=== PATIENT | male | born 1940 | race Caucasian/White ===

== ENCOUNTER 2023-03-16 14:15 | Emergency (ER) | payer MEDICARE, BC ==
[2023-03-16] MEDS ORDERED: Ondansetron 4 MG/2 ML SDV IVPUSH ONE (14:29)
[2023-03-16] MEDS ORDERED: Sodium Chloride 0.9% 10 ML Syringe FLUSH PRN (14:32)
[2023-03-16] MEDS: Diltiazem 25 MG/5 ML SDV IVPUSH ONE ×2 (14:33→14:42)
[2023-03-16 14:40] LABS: BASOPHILS ABSOLUTE AUTO 0.01 K/uL (0.00-0.20); BASOPHILS PERCENT AUTO 0.4 % (0.0-2.0); EOSINOPHILS ABSOLUTE AUTO 0.16 K/uL (0.00-0.50); EOSINOPHILS PERCENT AUTO 5.9 % (0.0-5.0); HEMATOCRIT 30.2 % (39.0-49.0); HEMOGLOBIN 9.7 g/dL (13.1-16.8); LYMPHOCYTES ABSOLUTE AUTO 0.44 K/uL (0.50-3.50); LYMPHOCYTES PERCENT AUTO 16.2 % (10.0-50.0); MEAN CORPUSCULAR HEMOGLOBIN 31.6 pg (28.2-33.3); MEAN CORPUSCULAR HGB CONC 32.1 g/dL (31.7-36.0); MEAN CORPUSCULAR VOLUME 98.4 fL (84.0-98.0); MONOCYTES ABSOLUTE AUTO 0.41 K/uL (0.00-1.00); MONOCYTES PERCENT AUTO 15.1 % (2.0-14.0); NEUTROPHILS ABSOLUTE AUTO 1.69 K/uL (1.40-7.00); NEUTROPHILS PERCENT AUTO 62.4 % (45.0-80.0); PLATELET COUNT,PLT 180 K/uL (150-350); RED BLOOD CELL COUNT 3.07 M/uL (4.33-5.41); RED CELL DISTRIBUTION WIDTH 17.6 % (11.2-14.1); WHITE BLOOD CELL COUNT,WBC 2.7 K/uL (4.0-10.2)
[2023-03-16] MEDS ORDERED: Lactated Ringers 1,000 ML IV SCH (14:45)
[2023-03-16] MEDS ORDERED: fentaNYL 50 MCG/ML SDV IVPUSH ONE (14:48)
[2023-03-16] MEDS ORDERED: Metoprolol Tartrate 5 MG/5 ML SDV ONE ×2 (14:50→14:58)
[2023-03-16] MEDS ORDERED: Digoxin 500 MCG/2 ML Amp ONE (15:00)
[2023-03-16 15:20] LABS: PROTHROMBIN TIME 10.4 SEC (9.0-11.1); PTT,PARTIAL THROMBOPLSTIN TIME 24.6 SEC (23.6-29.8)
[2023-03-16 15:20] LABS: ALANINE AMINOTRANSFERASE,ALT 54 U/L (12-78); ALBUMIN 2.7 g/dL (3.4-5.0); ALKALINE PHOSPHATASE 96 IU/L (46-116); ANION GAP 12.8 meq/L (7-15); ASPARTATE AMNIOTRANSFERASE,AST 34 U/L (15-37); BILIRUBIN TOTAL 0.6 mg/dL (0.2-1.0); BLOOD UREA NITROGEN,BUN 13 mg/dL (7-18); CALCIUM 7.3 mg/dL (8.5-10.1); CARBON DIOXIDE,CO2 24.2 mmol/L (21.0-32.0); CHLORIDE,CL 103 mmol/L (98-107); GLUCOSE RANDOM 140 mg/dL (70-99); MAGNESIUM 1.2 mg/dL (1.8-2.4); POTASSIUM,K 4.1 mmol/L (3.5-5.1); PROTEIN TOTAL,TP 5.8 g/dL (6.4-8.2); SODIUM,NA 140 mmol/L (136-145); TSH ULTRASENSITIVE 0.778 mIU/mL (0.358-3.740)
[2023-03-16] MEDS ORDERED: Metoclopramide 10 MG/2 ML SDV ONE (15:21)
[2023-03-16 15:22] LABS: ESTIMATED GFR 74 mL/min (>=60)
[2023-03-16 15:27] LABS: C-REACTIVE PROTEIN 5.55 mg/dL (0.05-0.30)
[2023-03-16] MEDS ORDERED: Magnesium Sulfate/Water 4 GM in Premix Bag 1 BAG IV ONE (16:07)
[2023-03-16] MEDS ORDERED: Enoxaparin 80 MG/0.8 ML Syringe ONE (16:21)
== END 2023-03-16 18:05 ==
LOC: LL.ED 14:15
DX: I48.91 Unspecified atrial fibrillation (principal); E83.42 Hypomagnesemia
CPT/HCPCS: 36415; 70450; 71045; 80053; 83735; 84443; 84484; 85025; 85610; 85730; 86140; 93005; 96361; 96365; 96366; 96368; 96375; 99285; J0282; J1160; J1650; J2405; J2765; J3010; J3475; J3490; J7120

== ENCOUNTER 2023-04-18 14:44 | Emergency (ER) | payer MEDICARE, BC, OTHER ==
[2023-04-18 15:28] LABS: HEMATOCRIT 31.7 % (39.0-49.0); HEMOGLOBIN 10.3 g/dL (13.1-16.8); LYMPHOCYTES ABSOLUTE AUTO 0.19 K/uL (0.50-3.50); LYMPHOCYTES PERCENT AUTO 4.6 % (10.0-50.0); MEAN CORPUSCULAR HEMOGLOBIN 31.5 pg (28.2-33.3); MEAN CORPUSCULAR HGB CONC 32.5 g/dL (31.7-36.0); MEAN CORPUSCULAR VOLUME 96.9 fL (84.0-98.0); MONOCYTES ABSOLUTE AUTO 0.72 K/uL (0.00-1.00); MONOCYTES PERCENT AUTO 17.3 % (2.0-14.0); NEUTROPHILS ABSOLUTE AUTO 3.25 K/uL (1.40-7.00); NEUTROPHILS PERCENT AUTO 78.1 % (45.0-80.0); PLATELET COUNT,PLT 149 K/uL (150-350); RED BLOOD CELL COUNT 3.27 M/uL (4.33-5.41); RED CELL DISTRIBUTION WIDTH 16.4 % (11.2-14.1); WHITE BLOOD CELL COUNT,WBC 4.2 K/uL (4.0-10.2)
[2023-04-18 15:39] LABS: BLOOD UREA NITROGEN,BUN 14 mg/dL (7-18); CALCIUM 7.8 mg/dL (8.5-10.1); CHLORIDE,CL 106 mmol/L (98-107); CREATININE 0.92 mg/dL (0.51-1.17); GLUCOSE RANDOM 147 mg/dL (70-99); POTASSIUM,K 4.1 mmol/L (3.5-5.1); SODIUM,NA 143 mmol/L (136-145)
[2023-04-18 15:41] LABS: ESTIMATED GFR 82 mL/min (>=60)
== END 2023-04-18 17:00 | disposition home or self-care (01) ==
LOC: SUPCPDRO 14:44 → LL.ED 14:44
DX: S61.215A Laceration without foreign body of left ring finger without damage to nail, initial encounter (principal); S00.83XA Contusion of other part of head, initial encounter; S50.311A Abrasion of right elbow, initial encounter; S90.412A Abrasion, left great toe, initial encounter; I10 Essential (primary) hypertension; E78.00 Pure hypercholesterolemia, unspecified; I25.10 Atherosclerotic heart disease of native coronary artery without angina pectoris; K21.9 Gastro-esophageal reflux disease without esophagitis; Z86.73 Personal history of transient ischemic attack (TIA), and cerebral infarction without residual deficits; Z79.899 Other long term (current) drug therapy; W18.2XXA Fall in (into) shower or empty bathtub, initial encounter
CPT/HCPCS: 36415; 70450; 72125; 80048; 85025; 99284

== ENCOUNTER 2023-06-21 11:58 | Observation (INO) | payer MEDICARE, BC ==
[2023-06-21 12:28] LABS: BASOPHILS ABSOLUTE AUTO 0.01 K/uL (0.00-0.20); BASOPHILS PERCENT AUTO 0.4 % (0.0-2.0); EOSINOPHILS ABSOLUTE AUTO 0.02 K/uL (0.00-0.50); EOSINOPHILS PERCENT AUTO 0.8 % (0.0-5.0); HEMATOCRIT 31.6 % (39.0-49.0); HEMOGLOBIN 10.3 g/dL (13.1-16.8); LYMPHOCYTES ABSOLUTE AUTO 0.24 K/uL (0.50-3.50); LYMPHOCYTES PERCENT AUTO 10.1 % (10.0-50.0); MEAN CORPUSCULAR HEMOGLOBIN 31.8 pg (28.2-33.3); MEAN CORPUSCULAR HGB CONC 32.6 g/dL (31.7-36.0); MEAN CORPUSCULAR VOLUME 97.5 fL (84.0-98.0); MONOCYTES ABSOLUTE AUTO 0.27 K/uL (0.00-1.00); MONOCYTES PERCENT AUTO 11.4 % (2.0-14.0); NEUTROPHILS ABSOLUTE AUTO 1.83 K/uL (1.40-7.00); NEUTROPHILS PERCENT AUTO 77.3 % (45.0-80.0); PLATELET COUNT,PLT 134 K/uL (150-350); RED BLOOD CELL COUNT 3.24 M/uL (4.33-5.41); RED CELL DISTRIBUTION WIDTH 16.6 % (11.2-14.1); WHITE BLOOD CELL COUNT,WBC 2.4 K/uL (4.0-10.2)
[2023-06-21 12:51] LABS: ALANINE AMINOTRANSFERASE,ALT 41 U/L (12-78); ALBUMIN 2.7 g/dL (3.4-5.0); ALKALINE PHOSPHATASE 82 IU/L (46-116); ANION GAP 7.1 meq/L (7-15); ASPARTATE AMNIOTRANSFERASE,AST 18 U/L (15-37); BILIRUBIN TOTAL 0.3 mg/dL (0.2-1.0); BLOOD UREA NITROGEN,BUN 17 mg/dL (7-18); CALCIUM 7.4 mg/dL (8.5-10.1); CARBON DIOXIDE,CO2 28.9 mmol/L (21.0-32.0); CHLORIDE,CL 105 mmol/L (98-107); CREATININE 0.74 mg/dL (0.51-1.17); ESTIMATED GFR 89 mL/min (>=60); GLUCOSE RANDOM 80 mg/dL (70-99); PRO B-TYPE NATRIUR PEPT,BNPPRO 1970 pg/mL (0-125); PROTEIN TOTAL,TP 5.6 g/dL (6.4-8.2); SODIUM,NA 141 mmol/L (136-145)
[2023-06-21 13:04] LABS: CORONAVIRUS COVID-19 NAA NEGATIVE (NEGATIVE); INFLUENZA A NAA NEGATIVE (NEGATIVE); INFLUENZA B NAA POSITIVE (NEGATIVE); RESPIRATORY SYNCYTIAL VIR NAA NEGATIVE (NEGATIVE)
[2023-06-21] MEDS: Magnesium Sulfate/Water 4 GM in Premix Bag 1 BAG IV ONE (14:46)
[2023-06-21] MEDS ORDERED: LENALIDOMIDE 10 MG PO SCH (15:45)
[2023-06-21] MEDS ORDERED: Non-Formulary Medication 1 Each (Insulin Glargine,Hum.Rec.Anlog [Lantus] 100 UNIT/ML Vial) SQ SCH (15:45)
[2023-06-21] MEDS ORDERED: oxyCODONE 5 MG Tab PO PRN (16:27)
[2023-06-21] MEDS: metFORMIN 500 MG Tab PO SCH (17:54)
[2023-06-21] MEDS: Acyclovir 200 MG Cap PO SCH (17:54)
[2023-06-21] MEDS: Apixaban 2.5 MG Tab PO SCH (17:54)
[2023-06-21] MEDS: guaiFENesin 600 MG Tab.ER PO SCH (17:55)
[2023-06-21] MEDS: Lisinopril 20 MG Tab PO SCH (19:23)
[2023-06-21] MEDS: Benzonatate 100 MG Cap PO PRN (19:23)
[2023-06-21] MEDS: atorvaSTATin 40 MG Tab PO SCH (19:23)
[2023-06-21] MEDS: Albuterol/Ipratropium 3.0-0.5 MG/3 ML Neb Soln NEB SCH (19:25)
[2023-06-21] MEDS: Sodium Chloride 0.9% 10 ML Syringe FLUSH PRN (19:32)
[2023-06-21] MEDS: Acetaminophen 325 MG Tab PO PRN (19:41)
[2023-06-22] MEDS: Fluconazole 200 MG Tab PO SCH (07:38)
[2023-06-22] MEDS: Ondansetron 4 MG Tab.DIS PO PRN (07:38)
[2023-06-22] MEDS: Omeprazole 20 MG Cap.CR PO SCH (07:38)
[2023-06-22] MEDS: Metoprolol Succinate 50 MG Tab.ER PO SCH (07:42)
[2023-06-22] MEDS: VICTOZA 18 MG/3 ML SUBCUT SCH (07:44)
[2023-06-22 08:15] LABS: BASOPHILS ABSOLUTE AUTO 0.02 K/uL (0.00-0.20); BASOPHILS PERCENT AUTO 0.8 % (0.0-2.0); EOSINOPHILS ABSOLUTE AUTO 0.01 K/uL (0.00-0.50); EOSINOPHILS PERCENT AUTO 0.4 % (0.0-5.0); HEMATOCRIT 30.7 % (39.0-49.0); HEMOGLOBIN 10.1 g/dL (13.1-16.8); LYMPHOCYTES ABSOLUTE AUTO 0.28 K/uL (0.50-3.50); LYMPHOCYTES PERCENT AUTO 11.1 % (10.0-50.0); MEAN CORPUSCULAR HEMOGLOBIN 31.7 pg (28.2-33.3); MEAN CORPUSCULAR HGB CONC 32.9 g/dL (31.7-36.0); MEAN CORPUSCULAR VOLUME 96.2 fL (84.0-98.0); MONOCYTES ABSOLUTE AUTO 0.21 K/uL (0.00-1.00); MONOCYTES PERCENT AUTO 8.3 % (2.0-14.0); NEUTROPHILS PERCENT AUTO 79.4 % (45.0-80.0); PLATELET COUNT,PLT 127 K/uL (150-350); RED BLOOD CELL COUNT 3.19 M/uL (4.33-5.41); RED CELL DISTRIBUTION WIDTH 16.6 % (11.2-14.1); WHITE BLOOD CELL COUNT,WBC 2.5 K/uL (4.0-10.2)
[2023-06-22 08:30] LABS: ANION GAP 7.3 meq/L (7-15); CALCIUM 7.4 mg/dL (8.5-10.1); CARBON DIOXIDE,CO2 28.7 mmol/L (21.0-32.0); CREATININE 0.74 mg/dL (0.51-1.17); EST CRCL DRUG DOSING (CG) 75.36 mL/min; MAGNESIUM 1.7 mg/dL (1.8-2.4); POTASSIUM,K 3.8 mmol/L (3.5-5.1)
[2023-06-22] MEDS: Magnesium Sulfate/Water 2 GM in Premix Bag 1 BAG IV ONE (09:11)
[2023-06-22] MEDS ORDERED: Take Home: Albuterol 6.7 GM Inhaler, 1 Inhaler Pack INH ONE (11:20)
[2023-06-22] MEDS: Take Home: Albuterol/Ipratropium 3.0-0.5 MG/3 ML Neb Soln, 4 Neb Pack NEB ONE (12:12)
== END 2023-06-22 12:24 | disposition home or self-care (01) ==
LOC: LL.ED 11:58 → LL.MS 15:13
PROVIDERS: ADMIT Emergency Medicine; ATTEND Emergency Medicine
DX: J10.1 Influenza due to other identified influenza virus with other respiratory manifestations (principal); E83.42 Hypomagnesemia; R06.82 Tachypnea, not elsewhere classified; R06.02 Shortness of breath; I25.10 Atherosclerotic heart disease of native coronary artery without angina pectoris; E78.00 Pure hypercholesterolemia, unspecified; I10 Essential (primary) hypertension; K21.9 Gastro-esophageal reflux disease without esophagitis; E11.9 Type 2 diabetes mellitus without complications; E66.9 Obesity, unspecified; Z68.30 Body mass index [BMI] 30.0-30.9, adult; Z79.899 Other long term (current) drug therapy; Z79.4 Long term (current) use of insulin; Z79.84 Long term (current) use of oral hypoglycemic drugs; Z20.822 Contact with and (suspected) exposure to COVID-19
CPT/HCPCS: 0241U; 36415; 71046; 80048; 80053; 83735; 83880; 85025; 94640; 96365; 96366; 99223; 99238; 99285-25; A9270-GY; G0378; J3475; J3490; J7620-GY

== ENCOUNTER 2023-09-02 16:50 | Inpatient (IN) | payer MEDICARE, BC ==
[2023-09-02 17:40] LABS: BASOPHILS ABSOLUTE AUTO 0.01 K/uL (0.00-0.20); BASOPHILS PERCENT AUTO 0.3 % (0.0-2.0); EOSINOPHILS ABSOLUTE AUTO 0.11 K/uL (0.00-0.50); EOSINOPHILS PERCENT AUTO 3.2 % (0.0-5.0); HEMOGLOBIN 10.9 g/dL (13.1-16.8); LYMPHOCYTES ABSOLUTE AUTO 0.69 K/uL (0.50-3.50); LYMPHOCYTES PERCENT AUTO 19.8 % (10.0-50.0); MEAN CORPUSCULAR HEMOGLOBIN 29.9 pg (28.2-33.3); MEAN CORPUSCULAR HGB CONC 32.1 g/dL (31.7-36.0); MEAN CORPUSCULAR VOLUME 93.4 fL (84.0-98.0); MONOCYTES ABSOLUTE AUTO 0.29 K/uL (0.00-1.00); MONOCYTES PERCENT AUTO 8.3 % (2.0-14.0); NEUTROPHILS ABSOLUTE AUTO 2.38 K/uL (1.40-7.00); NEUTROPHILS PERCENT AUTO 68.4 % (45.0-80.0); PLATELET COUNT,PLT 197 K/uL (150-350); RED BLOOD CELL COUNT 3.64 M/uL (4.33-5.41); RED CELL DISTRIBUTION WIDTH 15.7 % (11.2-14.1); WHITE BLOOD CELL COUNT,WBC 3.5 K/uL (4.0-10.2)
[2023-09-02 17:55] LABS: APPEARANCE,URINE SLIGHTLY CLOUDY; BILIRUBIN,URINE NEGATIVE (NEGATIVE); COLOR,URINE YELLOW; GLUCOSE,URINE NEGATIVE (NEGATIVE); KETONES,URINE NEGATIVE (NEGATIVE); LEUKOCYTE ESTERASE,URINE NEGATIVE (NEGATIVE); NITRITE,URINE NEGATIVE (NEGATIVE); OCCULT BLOOD,URINE NEGATIVE (NEGATIVE); PH,URINE 7.5 (5.0-9.0); PROTEIN,URINE 100 mg/dL (NEGATIVE); UROBILINOGEN,URINE 0.2 E.U./dL (0.2-1.0)
[2023-09-02 18:03] LABS: LACTIC ACID 1.4 mmol/L (0.4-2.0)
[2023-09-02 18:07] LABS: ALANINE AMINOTRANSFERASE,ALT 22 U/L (12-78); ALBUMIN 3.1 g/dL (3.4-5.0); ALKALINE PHOSPHATASE 67 IU/L (46-116); ASPARTATE AMNIOTRANSFERASE,AST 11 U/L (15-37); BILIRUBIN TOTAL 0.6 mg/dL (0.2-1.0); BLOOD UREA NITROGEN,BUN 8 mg/dL (7-18); CALCIUM 8.1 mg/dL (8.5-10.1); CARBON DIOXIDE,CO2 32.1 mmol/L (21.0-32.0); CHLORIDE,CL 101 mmol/L (98-107); GLUCOSE RANDOM 130 mg/dL (70-99); POTASSIUM,K 3.4 mmol/L (3.5-5.1); PRO B-TYPE NATRIUR PEPT,BNPPRO 3809 pg/mL (0-125); PROTEIN TOTAL,TP 5.9 g/dL (6.4-8.2); SODIUM,NA 141 mmol/L (136-145)
[2023-09-02 18:08] LABS: ANION GAP 11.3 meq/L (7-15); ESTIMATED GFR 74 mL/min (>=60)
[2023-09-02 18:12] LABS: BACTERIA,URINE RARE /HPF (NONE TO FEW); EPITHELIAL CELLS,URINE RARE /LPF; MUCUS,URINE FEW /LPF (NEGATIVE); RBC,URINE 0-5 /HPF; WBC,URINE 0-5 /HPF
[2023-09-02] MEDS: Furosemide 40 MG/4 ML VIAL IVPUSH ONE (19:07)
[2023-09-02] MEDS: Sodium Chloride 0.9% 10 ML Syringe FLUSH PRN (19:07)
[2023-09-02] MEDS: Magnesium Sulfate/Water 2 GM in Premix Bag 1 BAG IV ONE (19:11)
[2023-09-02] MEDS ORDERED: Albuterol/Ipratropium 3.0-0.5 MG/3 ML Neb Soln INH PRN (20:00)
[2023-09-02] MEDS ORDERED: Nitroglycerin 0.4 MG Tab.SL SL PRN (20:00)
[2023-09-02] MEDS ORDERED: oxyCODONE 5 MG Tab PO PRN (20:40)
[2023-09-02] MEDS: Lisinopril 10 MG Tab PO SCH (20:42)
[2023-09-02] MEDS: Apixaban 2.5 MG Tab PO SCH (20:43)
[2023-09-02] MEDS: atorvaSTATin 40 MG Tab PO SCH (20:43)
[2023-09-02] MEDS: Ondansetron 4 MG Tab.DIS PO PRN (20:43)
[2023-09-03] MEDS: Potassium Bicarbonate/Cit Ac 20 MEQ Effervescent Tab PO ONE (00:30)
[2023-09-03] MEDS: Magnesium Sulfate/Water 2 GM in Premix Bag 1 BAG IV ONE (00:30)
[2023-09-03] MEDS: Omeprazole 20 MG Cap.CR PO SCH (07:25)
[2023-09-03] MEDS: Metoprolol Succinate 50 MG Tab.ER PO SCH (07:25)
[2023-09-03 07:39] LABS: BASOPHILS ABSOLUTE AUTO 0.01 K/uL (0.00-0.20); BASOPHILS PERCENT AUTO 0.2 % (0.0-2.0); EOSINOPHILS PERCENT AUTO 2.1 % (0.0-5.0); HEMATOCRIT 33.3 % (39.0-49.0); HEMOGLOBIN 10.6 g/dL (13.1-16.8); LYMPHOCYTES ABSOLUTE AUTO 0.64 K/uL (0.50-3.50); LYMPHOCYTES PERCENT AUTO 13.2 % (10.0-50.0); MEAN CORPUSCULAR HEMOGLOBIN 29.5 pg (28.2-33.3); MEAN CORPUSCULAR HGB CONC 31.8 g/dL (31.7-36.0); MEAN CORPUSCULAR VOLUME 92.8 fL (84.0-98.0); MONOCYTES ABSOLUTE AUTO 0.46 K/uL (0.00-1.00); MONOCYTES PERCENT AUTO 9.5 % (2.0-14.0); NEUTROPHILS ABSOLUTE AUTO 3.64 K/uL (1.40-7.00); PLATELET COUNT,PLT 183 K/uL (150-350); RED BLOOD CELL COUNT 3.59 M/uL (4.33-5.41); RED CELL DISTRIBUTION WIDTH 15.3 % (11.2-14.1); WHITE BLOOD CELL COUNT,WBC 4.9 K/uL (4.0-10.2)
[2023-09-03 07:59] LABS: ALBUMIN 2.9 g/dL (3.4-5.0); BILIRUBIN TOTAL 0.5 mg/dL (0.2-1.0); CALCIUM 7.7 mg/dL (8.5-10.1); CARBON DIOXIDE,CO2 34.9 mmol/L (21.0-32.0); CREATININE 0.93 mg/dL (0.51-1.17); EST CRCL DRUG DOSING (CG) 59.16 mL/min; MAGNESIUM 1.9 mg/dL (1.8-2.4); POTASSIUM,K 3.8 mmol/L (3.5-5.1)
[2023-09-03 09:24] LABS: PROTEIN TOTAL,TP 5.5 g/dL (6.4-8.2)
[2023-09-03 09:26] LABS: ANION GAP 8.9 meq/L (7-15)
[2023-09-03] MEDS: VICTOZA 18 MG/3 ML SUBCUT SCH (09:48)
[2023-09-03] MEDS: Lenalidomide [Revlimid] 10 MG Capsule PO SCH ×2 (12:00→12:15)
[2023-09-03] MEDS: Bumetanide 1 MG Tab PO SCH (12:01)
[2023-09-03] MEDS: Magnesium Chloride 64 MG Tab.ER PO SCH (12:01)
[2023-09-03] MEDS: Potassium Chloride 20 MEQ Tab.ER PO SCH (12:01)
[2023-09-04 07:33] LABS: BASOPHILS ABSOLUTE AUTO 0.02 K/uL (0.00-0.20); BASOPHILS PERCENT AUTO 0.4 % (0.0-2.0); EOSINOPHILS PERCENT AUTO 2.2 % (0.0-5.0); HEMATOCRIT 34.3 % (39.0-49.0); HEMOGLOBIN 11.1 g/dL (13.1-16.8); LYMPHOCYTES ABSOLUTE AUTO 0.87 K/uL (0.50-3.50); LYMPHOCYTES PERCENT AUTO 19.1 % (10.0-50.0); MEAN CORPUSCULAR HEMOGLOBIN 30.1 pg (28.2-33.3); MEAN CORPUSCULAR HGB CONC 32.4 g/dL (31.7-36.0); MONOCYTES ABSOLUTE AUTO 0.61 K/uL (0.00-1.00); MONOCYTES PERCENT AUTO 13.4 % (2.0-14.0); NEUTROPHILS ABSOLUTE AUTO 2.96 K/uL (1.40-7.00); NEUTROPHILS PERCENT AUTO 64.9 % (45.0-80.0); PLATELET COUNT,PLT 214 K/uL (150-350); RED BLOOD CELL COUNT 3.69 M/uL (4.33-5.41); RED CELL DISTRIBUTION WIDTH 15.3 % (11.2-14.1); WHITE BLOOD CELL COUNT,WBC 4.6 K/uL (4.0-10.2)
[2023-09-04] MEDS ORDERED: Bumetanide 1 MG Tab PO SCH (08:00)
[2023-09-04 08:06] LABS: CALCIUM 7.7 mg/dL (8.5-10.1); CARBON DIOXIDE,CO2 33.5 mmol/L (21.0-32.0); CREATININE 0.88 mg/dL (0.51-1.17); EST CRCL DRUG DOSING (CG) 63.37 mL/min; MAGNESIUM 1.7 mg/dL (1.8-2.4); POTASSIUM,K 3.9 mmol/L (3.5-5.1)
[2023-09-04 08:11] LABS: ANION GAP 9.4 meq/L (7-15)
[2023-09-04 09:13] VITALS: BP 119/67; PULSE 71
== END 2023-09-04 09:08 | disposition home or self-care (01) | DRG 292 ==
LOC: LL.ED 16:50 → UNDOADMIN 18:43 → LL.MS 18:43 → UNDODISIN 09-04 09:08
PROVIDERS: ADMIT Nurse Practitioner; ATTEND Family Medicine
DX: I11.0 Hypertensive heart disease with heart failure (principal); I50.9 Heart failure, unspecified; C90.00 Multiple myeloma not having achieved remission; E46 Unspecified protein-calorie malnutrition; I50.22 Chronic systolic (congestive) heart failure; I25.10 Atherosclerotic heart disease of native coronary artery without angina pectoris; E83.42 Hypomagnesemia; Z66 Do not resuscitate; E11.9 Type 2 diabetes mellitus without complications; I48.91 Unspecified atrial fibrillation; E78.00 Pure hypercholesterolemia, unspecified; K21.9 Gastro-esophageal reflux disease without esophagitis; E66.9 Obesity, unspecified; I25.110 Atherosclerotic heart disease of native coronary artery with unstable angina pectoris; E87.6 Hypokalemia; M19.90 Unspecified osteoarthritis, unspecified site; I25.2 Old myocardial infarction; I49.1 Atrial premature depolarization; E11.69 Type 2 diabetes mellitus with other specified complication; I08.1 Rheumatic disorders of both mitral and tricuspid valves; I48.0 Paroxysmal atrial fibrillation; Z87.891 Personal history of nicotine dependence; Z86.73 Personal history of transient ischemic attack (TIA), and cerebral infarction without residual deficits; Z68.23 Body mass index [BMI] 23.0-23.9, adult; Z79.01 Long term (current) use of anticoagulants; Z79.899 Other long term (current) drug therapy
CPT/HCPCS: 36415; 51702; 71045; 80048; 80053; 81001; 83605; 83735; 83880; 84484; 85025; 93005; 93010; 97161-GP; 99223; 99233; 99239; 99285; A9270-GY; J1940; J3475; J3490

== ENCOUNTER 2023-11-02 13:01 | Observation (INO) | payer MEDICARE, BC ==
[2023-11-02 13:45] LABS: BASOPHILS ABSOLUTE AUTO 0.02 K/uL (0.00-0.20); BASOPHILS PERCENT AUTO 0.4 % (0.0-2.0); EOSINOPHILS ABSOLUTE AUTO 0.12 K/uL (0.00-0.50); EOSINOPHILS PERCENT AUTO 2.6 % (0.0-5.0); HEMATOCRIT 34.7 % (39.0-49.0); HEMOGLOBIN 11.3 g/dL (13.1-16.8); LYMPHOCYTES ABSOLUTE AUTO 0.89 K/uL (0.50-3.50); LYMPHOCYTES PERCENT AUTO 19.1 % (10.0-50.0); MEAN CORPUSCULAR HEMOGLOBIN 28.9 pg (28.2-33.3); MEAN CORPUSCULAR HGB CONC 32.6 g/dL (31.7-36.0); MEAN CORPUSCULAR VOLUME 88.7 fL (84.0-98.0); MONOCYTES ABSOLUTE AUTO 0.64 K/uL (0.00-1.00); MONOCYTES PERCENT AUTO 13.8 % (2.0-14.0); NEUTROPHILS ABSOLUTE AUTO 2.98 K/uL (1.40-7.00); NEUTROPHILS PERCENT AUTO 64.1 % (45.0-80.0); PLATELET COUNT,PLT 158 K/uL (150-350); RED BLOOD CELL COUNT 3.91 M/uL (4.33-5.41); RED CELL DISTRIBUTION WIDTH 14.9 % (11.2-14.1); WHITE BLOOD CELL COUNT,WBC 4.7 K/uL (4.0-10.2)
[2023-11-02 14:11] LABS: ALANINE AMINOTRANSFERASE,ALT 19 U/L (12-78); ALKALINE PHOSPHATASE 44 IU/L (46-116); ASPARTATE AMNIOTRANSFERASE,AST 16 U/L (15-37); BILIRUBIN TOTAL 0.4 mg/dL (0.2-1.0); BLOOD UREA NITROGEN,BUN 19 mg/dL (7-18); CALCIUM 8.2 mg/dL (8.5-10.1); CARBON DIOXIDE,CO2 31.9 mmol/L (21.0-32.0); CHLORIDE,CL 103 mmol/L (98-107); CREATININE 1.01 mg/dL (0.51-1.17); GLUCOSE RANDOM 139 mg/dL (70-99); MAGNESIUM 1.3 mg/dL (1.8-2.4); POTASSIUM,K 3.3 mmol/L (3.5-5.1); PRO B-TYPE NATRIUR PEPT,BNPPRO 1559 pg/mL (0-125); PROTEIN TOTAL,TP 5.6 g/dL (6.4-8.2); SODIUM,NA 140 mmol/L (136-145)
[2023-11-02 14:12] LABS: ANION GAP 8.4 meq/L (7-15); ESTIMATED GFR 73 mL/min (>=60)
[2023-11-02] MEDS ORDERED: Ondansetron 4 MG Tab.DIS PO PRN (18:47)
[2023-11-02] MEDS ORDERED: Albuterol/Ipratropium 3.0-0.5 MG/3 ML Neb Soln NEB PRN (19:00)
[2023-11-02] MEDS ORDERED: Nitroglycerin 0.4 MG Tab.SL SL PRN (19:00)
[2023-11-02] MEDS: Potassium Bicarbonate/Cit Ac 20 MEQ Effervescent Tab PO ONE (19:35)
[2023-11-02] MEDS: Furosemide 40 MG/4 ML VIAL IVPUSH ONE (19:35)
[2023-11-02] MEDS: Magnesium Sulfate/Water 2 GM in Premix Bag 1 BAG IV ONE (19:36)
[2023-11-02] MEDS: atorvaSTATin 40 MG Tab PO SCH (19:36)
[2023-11-02] MEDS: Lisinopril 10 MG Tab PO SCH (19:36)
[2023-11-02] MEDS: Apixaban 5 MG Tab PO ONE ×2 (19:39→19:41)
[2023-11-02] MEDS ORDERED: Sodium Chloride 0.9% 10 ML Syringe FLUSH PRN (20:38)
[2023-11-02] MEDS: Haloperidol 5 MG Tab PO PRN (23:10)
[2023-11-03 07:31] LABS: BASOPHILS ABSOLUTE AUTO 0.03 K/uL (0.00-0.20); BASOPHILS PERCENT AUTO 0.5 % (0.0-2.0); EOSINOPHILS ABSOLUTE AUTO 0.18 K/uL (0.00-0.50); HEMATOCRIT 33.6 % (39.0-49.0); HEMOGLOBIN 11.1 g/dL (13.1-16.8); LYMPHOCYTES ABSOLUTE AUTO 1.16 K/uL (0.50-3.50); LYMPHOCYTES PERCENT AUTO 19.6 % (10.0-50.0); MEAN CORPUSCULAR HEMOGLOBIN 29.4 pg (28.2-33.3); MEAN CORPUSCULAR VOLUME 89.1 fL (84.0-98.0); MONOCYTES PERCENT AUTO 13.5 % (2.0-14.0); NEUTROPHILS ABSOLUTE AUTO 3.75 K/uL (1.40-7.00); NEUTROPHILS PERCENT AUTO 63.4 % (45.0-80.0); PLATELET COUNT,PLT 148 K/uL (150-350); RED BLOOD CELL COUNT 3.77 M/uL (4.33-5.41); WHITE BLOOD CELL COUNT,WBC 5.9 K/uL (4.0-10.2)
[2023-11-03 07:57] LABS: CALCIUM 8.2 mg/dL (8.5-10.1); CARBON DIOXIDE,CO2 32.6 mmol/L (21.0-32.0); CREATININE 1.06 mg/dL (0.51-1.17); EST CRCL DRUG DOSING (CG) 52.61 mL/min; MAGNESIUM 1.6 mg/dL (1.8-2.4); POTASSIUM,K 3.3 mmol/L (3.5-5.1)
[2023-11-03] MEDS: Apixaban 2.5 MG Tab PO SCH (07:57)
[2023-11-03 07:59] LABS: ANION GAP 9.7 meq/L (7-15)
[2023-11-03] MEDS: Metoprolol Succinate 50 MG Tab.ER PO SCH (07:59)
[2023-11-03] MEDS: Magnesium Sulfate/Water 2 GM in Premix Bag 1 BAG IV ONE (09:47)
[2023-11-03] MEDS: Potassium Bicarbonate/Cit Ac 20 MEQ Effervescent Tab PO ONE (13:27)
== END 2023-11-03 14:00 | disposition home or self-care (01) ==
LOC: LL.ED 13:01 → LL.MS 16:50
PROVIDERS: ADMIT Emergency Medicine; ATTEND Emergency Medicine
DX: R79.89 Other specified abnormal findings of blood chemistry (principal); R06.02 Shortness of breath; E83.42 Hypomagnesemia; I11.0 Hypertensive heart disease with heart failure; I50.9 Heart failure, unspecified; I48.91 Unspecified atrial fibrillation; I25.10 Atherosclerotic heart disease of native coronary artery without angina pectoris; E78.00 Pure hypercholesterolemia, unspecified; J44.9 Chronic obstructive pulmonary disease, unspecified; E11.9 Type 2 diabetes mellitus without complications; E66.9 Obesity, unspecified; Z79.01 Long term (current) use of anticoagulants; Z79.899 Other long term (current) drug therapy; Z68.30 Body mass index [BMI] 30.0-30.9, adult; Z87.891 Personal history of nicotine dependence
CPT/HCPCS: 36415; 71045; 80048; 80053; 83735; 83880; 84484; 85025; 93005; 93010; 96365; 96366; 96375; 97161-GP; 99223; 99238; 99285; A9270-GY; G0378; J1940; J3475

== ENCOUNTER 2024-11-17 19:36 | Inpatient (IN) | payer MEDICARE, BC ==
[2024-11-17 20:57] LABS: BASOPHILS ABSOLUTE AUTO 0.00 K/uL (0.00-0.20); BASOPHILS PERCENT AUTO 0.0 % (0.0-2.0); EOSINOPHILS ABSOLUTE AUTO 0.00 K/uL (0.00-0.50); EOSINOPHILS PERCENT AUTO 0.0 % (0.0-5.0); IMMATURE GRAN ABSOLUTE AUTO 0.01 10^3/uL (0.00-0.04); IMMATURE GRAN PERCENT AUTO 0.8 % (0.0-0.4); LYMPHOCYTES ABSOLUTE AUTO 0.21 K/uL (0.50-3.50); LYMPHOCYTES PERCENT AUTO 17.1 % (10.0-50.0); MONOCYTES ABSOLUTE AUTO 0.12 K/uL (0.00-1.00); MONOCYTES PERCENT AUTO 9.8 % (2.0-14.0); NEUTROPHILS ABSOLUTE AUTO 0.89 K/uL (1.40-7.00); NEUTROPHILS PERCENT AUTO 72.3 % (45.0-80.0); PLATELET COUNT,PLT 74 K/uL (150-350); RED BLOOD CELL COUNT 2.54 M/uL (4.33-5.41); RED CELL DISTRIBUTION WIDTH 17.2 % (11.2-14.1)
[2024-11-17 20:59] LABS: WHITE BLOOD CELL COUNT,WBC 1.2 K/uL (4.0-10.2)
[2024-11-17 21:05] LABS: ALANINE AMINOTRANSFERASE,ALT 22 U/L (12-78); ASPARTATE AMNIOTRANSFERASE,AST 42 U/L (15-37); BILIRUBIN TOTAL 0.3 mg/dL (0.2-1.0); BLOOD UREA NITROGEN,BUN 22 mg/dL (7-18); CARBON DIOXIDE,CO2 26.1 mmol/L (21.0-32.0); CHLORIDE,CL 107 mmol/L (98-107); CREATININE 1.68 mg/dL (0.51-1.17); ESTIMATED GFR 39 mL/min (>=60); GLUCOSE RANDOM 131 mg/dL (70-99); POTASSIUM,K 3.9 mmol/L (3.5-5.1); PROTEIN TOTAL,TP 6.4 g/dL (6.4-8.2); SODIUM,NA 142 mmol/L (136-145)
[2024-11-17 21:08] LABS: LACTIC ACID 1.2 mmol/L (0.4-2.0)
[2024-11-17 23:47] LABS: GLUCOSE,URINE >=1000 mg/dL (NEGATIVE); OCCULT BLOOD,URINE NEGATIVE (NEGATIVE)
[2024-11-17 23:51] LABS: APPEARANCE,URINE SLIGHTLY CLOUDY
[2024-11-18] LABS: SQUAMOUS EPITHELIAL CELLS,UR RARE /HPF (NOT SEEN)
[2024-11-18] MEDS ORDERED: Ondansetron 4 MG Tab.DIS PO PRN (00:32)
[2024-11-18] MEDS ORDERED: Nitroglycerin 0.4 MG Tab.SL SL PRN (01:20)
[2024-11-18] MEDS ORDERED: CYCLOPHOSPHAMIDE 50 MG PO SCH (01:30)
[2024-11-18] MEDS ORDERED: 50% Dextrose in Water 50 ML Syringe IVPUSH PRN (01:35)
[2024-11-18 07:52] LABS: BASOPHILS ABSOLUTE AUTO 0.00 K/uL (0.00-0.20); BASOPHILS PERCENT AUTO 0.0 % (0.0-2.0); EOSINOPHILS ABSOLUTE AUTO 0.00 K/uL (0.00-0.50); EOSINOPHILS PERCENT AUTO 0.0 % (0.0-5.0); IMMATURE GRAN ABSOLUTE AUTO 0.01 10^3/uL (0.00-0.04); IMMATURE GRAN PERCENT AUTO 0.9 % (0.0-0.4); LYMPHOCYTES ABSOLUTE AUTO 0.40 K/uL (0.50-3.50); LYMPHOCYTES PERCENT AUTO 37.7 % (10.0-50.0); MONOCYTES ABSOLUTE AUTO 0.11 K/uL (0.00-1.00); MONOCYTES PERCENT AUTO 10.4 % (2.0-14.0); NEUTROPHILS ABSOLUTE AUTO 0.54 K/uL (1.40-7.00); NEUTROPHILS PERCENT AUTO 51.0 % (45.0-80.0); PLATELET COUNT,PLT 55 K/uL (150-350); RED BLOOD CELL COUNT 2.19 M/uL (4.33-5.41); RED CELL DISTRIBUTION WIDTH 17.6 % (11.2-14.1)
[2024-11-18 07:54] LABS: WHITE BLOOD CELL COUNT,WBC 1.1 K/uL (4.0-10.2)
[2024-11-18 07:55] LABS: ALANINE AMINOTRANSFERASE,ALT 18.0 U/L (12-78); ASPARTATE AMNIOTRANSFERASE,AST 57.0 U/L (15-37); BILIRUBIN TOTAL 0.3 mg/dL (0.2-1.0); BLOOD UREA NITROGEN,BUN 26.0 mg/dL (7-18); CARBON DIOXIDE,CO2 25.2 mmol/L (21.0-32.0); CHLORIDE,CL 109.0 mmol/L (98-107); CREATININE 1.53 mg/dL (0.51-1.17); EST CRCL DRUG DOSING (CG) 33.53 mL/min; GLUCOSE RANDOM 89.0 mg/dL (70-99); POTASSIUM,K 3.7 mmol/L (3.5-5.1); PROTEIN TOTAL,TP 5.7 g/dL (6.4-8.2); SODIUM,NA 144.0 mmol/L (136-145)
[2024-11-18 07:58] LABS: ESTIMATED GFR 44.0 mL/min (>=60)
[2024-11-18 16:14] LABS: BLOOD UREA NITROGEN,BUN 30.0 mg/dL (7-18); CARBON DIOXIDE,CO2 26.3 mmol/L (21.0-32.0); CHLORIDE,CL 109.0 mmol/L (98-107); CREATININE 1.45 mg/dL (0.51-1.17); EST CRCL DRUG DOSING (CG) 35.38 mL/min; GLUCOSE RANDOM 99.0 mg/dL (70-99); POTASSIUM,K 3.7 mmol/L (3.5-5.1); SODIUM,NA 141.0 mmol/L (136-145)
[2024-11-18 16:16] LABS: BASOPHILS ABSOLUTE AUTO 0.00 K/uL (0.00-0.20); BASOPHILS PERCENT AUTO 0.0 % (0.0-2.0); EOSINOPHILS ABSOLUTE AUTO 0.00 K/uL (0.00-0.50); EOSINOPHILS PERCENT AUTO 0.0 % (0.0-5.0); ESTIMATED GFR 47.0 mL/min (>=60); IMMATURE GRAN ABSOLUTE AUTO 0.01 10^3/uL (0.00-0.04); IMMATURE GRAN PERCENT AUTO 0.9 % (0.0-0.4); LYMPHOCYTES ABSOLUTE AUTO 0.45 K/uL (0.50-3.50); LYMPHOCYTES PERCENT AUTO 39.1 % (10.0-50.0); MONOCYTES ABSOLUTE AUTO 0.07 K/uL (0.00-1.00); MONOCYTES PERCENT AUTO 6.1 % (2.0-14.0); NEUTROPHILS ABSOLUTE AUTO 0.62 K/uL (1.40-7.00); NEUTROPHILS PERCENT AUTO 53.9 % (45.0-80.0); PLATELET COUNT,PLT 52 K/uL (150-350); RED BLOOD CELL COUNT 2.32 M/uL (4.33-5.41); RED CELL DISTRIBUTION WIDTH 17.7 % (11.2-14.1)
[2024-11-18 16:17] LABS: WHITE BLOOD CELL COUNT,WBC 1.2 K/uL (4.0-10.2)
[2024-11-18] MEDS: Ondansetron 4 MG Tab.DIS PO SCH (21:57)
[2024-11-19 08:04] LABS: BLOOD UREA NITROGEN,BUN 28.0 mg/dL (7-18); CARBON DIOXIDE,CO2 23.9 mmol/L (21.0-32.0); CHLORIDE,CL 107.0 mmol/L (98-107); CREATININE 1.31 mg/dL (0.51-1.17); EST CRCL DRUG DOSING (CG) 39.16 mL/min; GLUCOSE RANDOM 91.0 mg/dL (70-99); POTASSIUM,K 4.1 mmol/L (3.5-5.1); SODIUM,NA 140.0 mmol/L (136-145)
[2024-11-19 08:12] LABS: ESTIMATED GFR 53.0 mL/min (>=60)
[2024-11-19 08:15] LABS: BASOPHILS ABSOLUTE AUTO 0.01 K/uL (0.00-0.20); BASOPHILS PERCENT AUTO 0.7 % (0.0-2.0); EOSINOPHILS ABSOLUTE AUTO 0.00 K/uL (0.00-0.50); EOSINOPHILS PERCENT AUTO 0.0 % (0.0-5.0); IMMATURE GRAN ABSOLUTE AUTO 0.00 10^3/uL (0.00-0.04); IMMATURE GRAN PERCENT AUTO 0.0 % (0.0-0.4); LYMPHOCYTES ABSOLUTE AUTO 0.49 K/uL (0.50-3.50); LYMPHOCYTES PERCENT AUTO 32.9 % (10.0-50.0); MONOCYTES ABSOLUTE AUTO 0.07 K/uL (0.00-1.00); MONOCYTES PERCENT AUTO 4.7 % (2.0-14.0); NEUTROPHILS ABSOLUTE AUTO 0.92 K/uL (1.40-7.00); NEUTROPHILS PERCENT AUTO 61.7 % (45.0-80.0); PLATELET COUNT,PLT 80 K/uL (150-350); RED BLOOD CELL COUNT 2.85 M/uL (4.33-5.41); RED CELL DISTRIBUTION WIDTH 17.1 % (11.2-14.1)
[2024-11-19 08:16] LABS: WHITE BLOOD CELL COUNT,WBC 1.5 K/uL (4.0-10.2)
[2024-11-19] MEDS: Ondansetron 4 MG Tab.DIS PO PRN (08:21)
[2024-11-19] MEDS: Sodium Chloride 0.9% 10 ML Syringe FLUSH PRN (09:41)
[2024-11-19] MEDS: [UNRECOGNIZED DRUG - OTHER] SUBCUT ONE ×2 (10:28→10:46)
[2024-11-23] MEDS ORDERED: CYCLOPHOSPHAMIDE PO ONE (08:00)
== END 2024-11-19 13:28 | disposition home or self-care (01) | DRG 809 ==
LOC: LL.ED 19:36 → UNDOADMIN 21:30 → LL.MS 21:30 → UNDODISIN 11-19 13:28
PROVIDERS: ADMIT Physician Assistant; ATTEND Physician Assistant
DX: D70.1 Agranulocytosis secondary to cancer chemotherapy (principal); D70.9 Neutropenia, unspecified; C90.00 Multiple myeloma not having achieved remission; N17.9 Acute kidney failure, unspecified; I50.22 Chronic systolic (congestive) heart failure; I11.0 Hypertensive heart disease with heart failure; T45.1X5A Adverse effect of antineoplastic and immunosuppressive drugs, initial encounter; R50.81 Fever presenting with conditions classified elsewhere; I50.9 Heart failure, unspecified; Z66 Do not resuscitate; Z68.25 Body mass index [BMI] 25.0-25.9, adult; H54.7 Unspecified visual loss; I25.10 Atherosclerotic heart disease of native coronary artery without angina pectoris; E78.00 Pure hypercholesterolemia, unspecified; I48.91 Unspecified atrial fibrillation; E11.9 Type 2 diabetes mellitus without complications; M19.90 Unspecified osteoarthritis, unspecified site; E66.9 Obesity, unspecified; K21.9 Gastro-esophageal reflux disease without esophagitis; E11.69 Type 2 diabetes mellitus with other specified complication; I48.0 Paroxysmal atrial fibrillation; E86.0 Dehydration; Z68.24 Body mass index [BMI] 24.0-24.9, adult; Z79.01 Long term (current) use of anticoagulants; Z79.84 Long term (current) use of oral hypoglycemic drugs; Z86.73 Personal history of transient ischemic attack (TIA), and cerebral infarction without residual deficits; Z79.899 Other long term (current) drug therapy
CPT/HCPCS: 36415; 80048; 80053; 81001; 82947; 83605; 83735; 85025; 87040; 96361; 96365; 99222; 99232; 99239; 99284-25; A9270-GY; J0692; J7030; Q5125